=== PATIENT | female | born 1990 | race Caucasian/White ===

== ENCOUNTER → 2025-11-07 10:16 | Outpatient (REF) | payer BC, SELFPAY ==
[2025-11-07 10:40] VITALS: BP 124/77; BP_SYST 83
[2025-11-07 10:52] LABS: INR 0.92; PT 12.5 Sec (11.4-14.6)
[2025-11-07 12:30] VITALS: BP 119/73; BP_SYST 81
[2025-11-07 14:06] LABS: CSF Color Colorless; CSF Tube # Clarity Clear; Red Cell Count/CSF 145 mm^3; White Blood Cell Count/CSF 1 mm^3 (0-5)
[2025-11-07 14:07] LABS: CSF Color Colorless; White Cell Count/CSF 1 mm^3 (0-5)
[2025-11-07 14:09] LABS: Red Cell Count/CSF 75 mm^3
== END ==
LOC: RADI 10:16
PROVIDERS: ATTENDING PHYSICIAN Specialist
DX: G37.9 Demyelinating disease of central nervous system, unspecified (principal); D68.8 Other specified coagulation defects
CPT/HCPCS: 36415; 62328; 82040; 82042; 82164; 82784; 82945; 83873; 83916; 84157; 85610; 86592; 86780; 87476; 89051